=== PATIENT | female | born 1955 | race Caucasian/White ===

== ENCOUNTER 2017-09-20 08:42 | Day surgery (SDC) | payer OTHER ==
[2017-09-20] MEDS ORDERED: PROPOFOL 20 ML (09:21)
[2017-09-20] MEDS ORDERED: LIDOCAINE 2% (SDV) 5 ML INJ (09:21)
== END 2017-09-20 10:58 | disposition home or self-care (01) ==
LOC: GIL 08:42
DX: K29.50 Unspecified chronic gastritis without bleeding (principal)
CPT/HCPCS: 43239; 88305; 88312